=== PATIENT | female | born 1950 | race Caucasian/White ===

== ENCOUNTER 2024-03-06 05:37 | Outpatient (CLI) | payer MEDICARE, OTHER | END 2024-03-06 23:59 | disposition home or self-care (01) | LOC: MRI02 05:37 → MRI 23:59 | PROVIDERS: ATTEND Pediatrics Sports Medicine | DX: M51.379 Other intervertebral disc degeneration, lumbosacral region without mention of lumbar back pain or lower extremity pain (principal); M47.816 Spondylosis without myelopathy or radiculopathy, lumbar region; M51.370 Other intervertebral disc degeneration, lumbosacral region with discogenic back pain only; M46.1 Sacroiliitis, not elsewhere classified | CPT/HCPCS: 72148 ==